=== PATIENT | male | born 2005 | race Caucasian/White ===

== ENCOUNTER 2023-01-14 11:04 | Outpatient (CLI) | payer OTHER, SELFPAY ==
--- NOTE | ~2023-01-14 | XR_ITS ---
EXAM: XR shoulder RT min 2V DATE: 01/14/2023 11:24 HISTORY: ACUTE PAIN OF RIGHT SHOULDER . COMPARISON: None available. FINDINGS: Normal mineralization. No fracture or dislocation. No lytic or blastic lesion. Joint space s are maintained. No erosion or periosteal change. Soft tissues within normal limits. IMPRESSION: No acute osseous finding in the right shoulder. Reviewed, dictated and finalized at location K.
== END 2023-01-14 11:05 | disposition home or self-care (01) ==
LOC: ANHASCIMG 11:10
PROVIDERS: Visit Provider Orthopaedic Surgery
DX: M25.511 Pain in right shoulder (principal)
CPT/HCPCS: 73030

== ENCOUNTER 2023-07-18 18:23 | Emergency (ER) | payer OTHER, SELFPAY ==
--- NOTE | ~2023-07-18 | XR_ITS ---
EXAMINATION: XR finger 2nd RT min 2V DATE: 07/18/2023 18:45 INDICATION: Right hand second digit injury and pain. TECHNIQUE: 4 views of right hand second digit were obtained. COMPARISON: None. FINDINGS: Bone alignment is normal. There is a nondisplaced oblique intra-articular fracture of base of second proximal phalanx. Joint spaces are normal. IMPRESSION: 1. Nondisplaced oblique intra-articular fracture of base of second proximal phalanx. Reviewed, dictated and finalized at location E. IMPRESSION: 1. Nondisplaced oblique intra-articular fracture of base of second proximal pha lanx.
[2023-07-18 18:29] VITALS: BP 150/80; PULSE 67; RESP 16; TEMP 37.1; O2SAT 100
--- NOTE | 2023-07-18 18:47 | ED.UPPEXIN ---
HPI - Extremity Injury (Upper) General Chief Complaint: Extremity Injury, Upper Stated Complaint: Right Finger Injury Source: patient and RN notes reviewed History of Present Illness HPI narrative: 17 yo M presents to urgent care with complaints of right index finger pain. Pt states [employer]VEN[employer]LY[employer], he was playing baseball when a ball bounced up and hit his right index finger. Pt reports his nail was bleeding at first and now presents with proximal phalanx pain. Denies any other injury. Related Data Home Medications Medication Instructions Recorded Confirmed No Home Medications 07/18/23 07/18/23 Allergies Allergy/AdvReac Type Severity Reaction Status Date / Time No Known Allergies Allergy Verified 07/18/23 18:36 Review of Systems Review of Systems: CONSTITUTIONAL: Denies fever, chills, or sweats. EYES: Denies visual changes, redness, or discharge. ENT: Denies otalgia and sore throat CARDIOVASCULAR: Denies chest pain, palpitations, or edema. RESPIRATORY: Denies cough or dyspnea. GASTROINTESTINAL: Denies abdominal pain, nausea, vomiting, or diarrhea. GENITOURINARY: Denies dysuria or hematuria. SKIN: Denies rash or itching. MUSCULOSKELETAL: Right index finger NEUROLOGIC: Denies headache, numbness, or weakness. Pertinent positives per HPI. PMFSH Comments At the time of my signature, I reviewed and agree with the nursing past medical, surgical, social, and family history. There is no relevant family history pertinent to the patient complaint. Exam Narrative: GENERAL: This is a well-nourished, well-developed patient, in no apparent distress. HEAD: normocephalic, atraumatic. EYES: Sclera clear/white. Vision is grossly intact. EARS: External ears normal, auditory canals clear and without drainage. Hearing grossly intact. NOSE: External nose normal with no obvious nasal discharge, nares without redness, no rhinorrhea. THROAT: Mucous membranes moist, posterior pharynx clear. NECK: Neck supple, non-tender without lymphadenopathy, masses or thyromegaly. CARDIOVASCULAR: Regular rate RESPIRATORY: No respiratory distress SKIN: warm, intact with no suspicious lesions or rash, good texture and turgor. NEURO: awake, alert, and oriented to person, place and time. There were no obvious focal neurologic abnormalities. EXTREMITIES: edematous and tender right 2nd, proximal, phalanx. minimal bleeding around tip of nail. cap refill < 3 sec. Course Course Level of Care: Express Care Visit Vital Signs Vital signs: Vital Signs Temperature 98.8 F 07/18/23 18:29 Pulse Rate 67 07/18/23 18:29 Respiratory Rate 16 07/18/23 18:29 Blood Pressure 150/80 H 07/18/23 18:29 Pulse Oximetry 100 07/18/23 18:29 Oxygen Delivery Room Air 07/18/23 18:29 Temperature 98.8 F 07/18/23 18:29 Pulse Rate 67 07/18/23 18:29 Respiratory Rate 16 07/18/23 18:29 Blood Pressure 150/80 H 07/18/23 18:29 Pulse Oximetry 100 07/18/23 18:29 Oxygen Delivery Room Air 07/18/23 18:29 reviewed MDM - Extremity Injury (Upper) MDM Narrative Medical decision making narrative: Use the RICE method at home. May take ibuprofen and/or Tylenol if needed. Follow-up with specialist. Differential Diagnosis Differential diagnosis: Likely finger sprain, dislocation of finger and other (finger fx) Imaging Data Radiologist's impression: [facility] [place] [id number] XRay Report Signed Patient: Bret Craft : 2005 MR#: [id number] Age/Sex: 17 / M Acct:[id number] Loc: [facility]? ? ADM Date: 07/18/23Attending Dr: Ordering Physician: Shirley Colón APRN Date of Service: 07/18/23 Procedure(s): XR finger 2nd RT min 2V Accession Number(s): [id number] cc: Shirley Colón APRN~ EXAMINATION: XR finger 2nd RT min 2V DATE: 07/18/2023 18:45 INDICATION: Right hand second digit injury and pain. TECHNIQUE: 4 views of right hand second digit
== END 2023-07-18 19:10 | disposition home or self-care (01) ==
PROVIDERS: Emergency Provider Nurse Practitioner Family
DX: S62.640A Nondisplaced fracture of proximal phalanx of right index finger, initial encounter for closed fracture (principal); W21.03XA Struck by baseball, initial encounter
CPT/HCPCS: 29130; 73140; 99214; G0463

== ENCOUNTER → 2023-08-08 10:31 | Outpatient (CLI) | payer OTHER, SELFPAY ==
--- NOTE | ~2023-08-08 | XR_ITS ---
EXAMINATION: XR hand RT min 3V DATE: 08/08/2023 10:53 INDICATION: Nondisplaced fracture of the second proximal phalanx of the right hand TECHNIQUE: Posteroanterior, oblique and lateral views of the right hand were obtained. COMPARISON: 07/18/2023 FINDINGS: Again seen is a nondisplaced intra-articular fracture at the ulnar base of the right fifth proximal p halanx. No definitive callus formation identified. Unable to assess for interval change in the degree of lucency along the fracture plane which was best patient in a supinated obliquity on the prior per dy which was not obtained in the current study. No evident fracture gap or incongruity at the articul ar surface. Remaining bones are unremarkable with normal limited no other fractures. Joint spaces are normal. Decrease in the prior soft tissue swelling at the second digit, now only minimal at the base of the digit. IMPRESSION: 1. No evident change in a nondisplaced intra-articular fracture at the base of the right second proxi mal phalanx. Reviewed, dictated and finalized at location A. IMPRESSION: 1. No evident change in a nondisplaced intra-articular fracture at the base of the right second proximal phalanx.
== END ==
DX: S62.640A Nondisplaced fracture of proximal phalanx of right index finger, initial encounter for closed fracture (principal); X58.XXXA Exposure to other specified factors, initial encounter
CPT/HCPCS: 73130

== ENCOUNTER 2024-08-23 06:30 | Emergency (ER) | payer OTHER, SELFPAY ==
--- NOTE | ~2024-08-23 | CT_ITS ---
CT abdomen pelvis wo con Ordering provider: Cristopher Paredes MD History: 19 years Male with . lef flank pain and hematuria . Comparison: None. Technique: CT abdomen and pelvis without contrast IV and without oral contrast. Automated exposure co ntrol and iterative reconstruction technique were employed.The dose-length product was 194.83 mGy-cm. Findings: VISUALIZED LOWER CHEST: Normal. UPPER ABDOMINAL ORGANS: Liver: Normal. Gallbladder: Normal. Spleen: Normal. Stomach/duodenum: Normal. Pancreas: Normal. Adrenals: Normal. Kidneys: Tiny stones in the left kidney upper and lower poles are noted. PELVIC ORGANS: The bladder is underfilled. Evaluation for cystitis advised. tiny faint calcifications seen in the posterior aspect of the urinary bladder with possibility of ti ny calcification in the left lower ureter and ureterovesical junction suggestive of stones. Follow-up advised. BOWEL AND MESENTERY: Colon: No evidence of diverticulitis. Fecal Material is seen in the right side of the colon. Normal a ppendix. Small Bowel: Normal. No obstruction. Peritoneum/mesentery: No free air or free fluid. No mesenteric lymphadenopathy. Small mesenteric lymp h nodes seen in the right side of the abdomen the largest measures 1.3 cm. RETROPERITONEUM: Normal aorta. No retroperitoneal lymphadenopathy. MUSCULOSKELETAL: Superficial soft tissues: The superficial soft tissues are normal. Bones: Normal spine. IMPRESSION: Possible stones in the posterior aspect of the urinary bladder and the left lower ureter. Follow-up a dvised. Tiny stones in the left kidney. No evidence of appendicitis, diverticulitis or intestinal obstruction. Reviewed, dictated and finalized at location A. PASSENGER VESSEL IMPRESSION: Possible stones in the posterior aspect of the urinary bladder and the left low er ureter. Follow-up advised. Tiny stones in the left kidney. No evidence of appendicitis, diverticulitis or intestinal obstruction.
[2024-08-23 06:42] VITALS: BP 147/83; PULSE 63; RESP 24; TEMP 37.2; O2SAT 100
[2024-08-23 07:02] LABS: Basophils Absolute Auto 0.1 K/mm3 (0.0-0.1); Basophils Percent Auto 0.7 % (0.2-1.2); Eosinophils Absolute Auto 0.1 K/mm3 (0-0.3); Eosinophils Percent Auto 1.4 % (0-4.4); Hematocrit 43.1 % (42.0-52.0); Hemoglobin 15.2 g/dL (14.0-18.0); Immature Granulocyte Absolute 0.01 K/mm3 (0.00-0.031); Immature Granulocyte Percent A 0.1 % (0-0.5); Lymphocytes Absolute Auto 3.54 K/mm3 (0.9-3.2); Lymphocytes Percent Auto 47.8 % (18.3-44.2); Mean Corpuscular HGB Conc 35.3 g/dl (32-36); Mean Corpuscular Hemoglobin 31.2 pg (26-34); Mean Corpuscular Volume 88.5 fl (80-100); Mean Platelet Volume 9.9 fl (7.4-10.4); Monocytes Percent Auto 12.8 % (2.6-8.5); Neutrophils Absolute Auto 2.8 K/mm3 (1.3-6.7); Neutrophils Percent Auto 37.2 % (45.5-73.1); Platelet Count Result 262 k/mm3 (150-375); Red Blood Count 4.87 M/mm3 (4.6-6.20); Red Cell Distribution Width 11.9 % (11.5-14.5); White Blood Count 7.4 K/mm3 (4.5-10.0)
[2024-08-23 07:15] LABS: Alanine Aminotransferase 25 U/L (6-50); Albumin Level 4.5 g/dL (3.5-5.1); Alkaline Phosphatase 60 U/L (38-126); Anion Gap 9 mmol/L (4-12); Aspartate Amino Transferase 23 U/L (17-59); Bilirubin,Total 0.6 mg/dL (0.2-1.3); Blood Urea Nitrogen 13 mg/dL (9-20); Calcium 9.2 mg/dL (8.4-10.2); Carbon Dioxide 25 mmol/L (22-30); Chloride 104 mmol/L (98-107); Estimated CRCL calculation 118 ml/min; Estimated Glomerular Filt Rate > 60; Glucose 142 mg/dL (65-110); Potassium 3.1 mmol/L (3.4-5.0); Sodium 138 mmol/L (137-145)
--- NOTE | 2024-08-23 07:15 | ED_ITS ---
HPI - General Adult General Chief complaint: Abdominal Pain Stated complaint: left side pain Time Seen by Provider: 08/23/24 06:52 History of Present Illness HPI narrative: 19-year-old male with no significant past medical history other than factor 5 Leiden disease presented to the emergency department for evaluation for left flank pain. Patient states he woke up to use the restroom and had no pain with urination noticed no blood in his urine but then began having significant left flank pain when he laid back down. Patient did take ibuprofen for pain control and states upon arrival emergency department that the medication is finally helping. Patient denies any prior history of kidney stones. Patient states his pain is significantly improved declined any medications for pain control at this time. Related Data Allergies Allergy/AdvReac Type Severity Reaction Status Date / Time No Known Allergies Allergy Verified 07/18/23 18:36 Review of Systems Review of Systems: All systems reviewed & are unremarkable except as noted in HPI and below PMFSH Past Medical History Medical History (Updated 08/23/24 @ 09:30 by Cristopher Paredes MD) Ureteral calculi Exam Narrative: APPEARANCE: Well appearing, no pain, no distress, well-nourished. HEAD: normocephalic, atraumatic. EYES: PERRLA/EOMI, conjunctivae clear. NOSE: Normal no drainage EARS:TMS clear with good light reflex. THROAT: Pharynx clear, no exudate. NECK: Supple. No adenopathy, no masses. RESPIRATORY: Airway patent, respirations nonlabored. Clear to auscultation bilaterally, no rales, rhonchi, wheezing. CARDIOVASCULAR: Regular rate and rhythm without murmurs rubs or gallops. ABDOMINAL: Soft, nontender, nondistended, normal bowel sounds MUSCULOSKELETAL: Moves all extremities. Strength/ROM intact, No edema, No calf tenderness. NEURO: Alert. Cranial nerves II through XII intact. Good gait. Good coordination SKIN: Warm, dry. Normal Color Course Vital Signs Vital signs: Vital Signs Temperature 98.9 F 08/23/24 06:42 Pulse Rate 63 08/23/24 06:42 Respiratory Rate 24 H 08/23/24 06:42 Blood Pressure 147/83 H 08/23/24 06:42 Pulse Oximetry 100 08/23/24 06:42 Oxygen Delivery Room Air 08/23/24 06:42 Temperature 98.9 F 08/23/24 06:42 Pulse Rate 76 08/23/24 09:52 Respiratory Rate 18 08/23/24 09:52 Blood Pressure 133/75 08/23/24 09:52 Pulse Oximetry 99 08/23/24 09:52 Oxygen Delivery Room Air 08/23/24 06:42 Medical Decision Making MDM Narrative Medical decision making narrative: 19-year-old male presents emergency department for evaluation of left flank pain. Patient is afebrile with no leukocytosis and hemoglobin of 15.2. Patient has normal kidney function no acute abnormalities on his CMP patient did have high months of blood on his UA and CT scan was ordered to evaluate for ureteral calculi. Patient did have some tiny stones within the bladder and at the distal left ureter. I believe this is the underlying etiology for the patient's symptoms. Patient was treated with Flomax and Lennon. Patient was also provided these medications and additional Zofran for home. Patient was instructed to strain his urine and was also provided follow-up with Urology. Differential Diagnosis Differential Diagnosis: Kidney stone, flank pain, UTI Vital Signs Vital Signs: Vital Signs Temperature 98.9 F 08/23/24 06:42 Pulse Rate 63 08/23/24 06:42 Respiratory Rate 24 H 08/23/24 06:42 Blood Pressure 147/83 H 08/23/24 06:42 Pulse Oximetry 100 08/23/24 06:42 Oxygen Delivery Room Air 08/23/24 06:42 Temperature 98.9 F 08/23/24 06:42 Pulse Rate 76 08/23/24 09:52 Respiratory Rate 18 08/23/24 09:52 Blood Pressure 133/75 08/23/24 09:52 Pulse Oximetry 99 08/23/24 09:52 Oxygen Delivery Room Air 08/23/24 06:42 Lab Data Lab results reviewed: Yes I reviewed the patient's lab results. 08/23/24 06:51 08/23/24 06:51 Labs: Lab Results 08/23/24 08/23/24 Range/Units 06:51 07:31 WBC 7.4 (4.5-10.0) K/mm3 RBC 4.87 (4.6-6.20) M/mm3 Hgb 15.2 (14.0-18.0) g/dL Hct 43.1 (42.0-52.0) % MCV 88.5 (80-100) fl MCH 31.2 (26-34) pg MCHC 35.3 (32-36) g/dl RDW 11.9 (11.5-14.5) % Plt Count 262 (150-375) k/mm3 MPV 9.9 (7.4-10.4) fl Immature Gran % (Auto) 0.1 (0-0.5) % Neut % (Auto) 37.2 L (45.5-73.1) % Lymph % (Auto) 47.8 H (18.3-44.2) % [place] % (Auto) 12.8 H (2.6-8.5) % Eos % (Auto) 1.4 (0-4.4) % Baso % (Auto) 0.7 (0.2-1.2) % Lymph # (Auto) 3.54 H (0.9-3.2) K/mm3 [place] # (Auto) 1.0 H (0.1-0.6) K/mm3 Eos # (Auto) 0.1 (0-0.3) K/mm3 Baso # (Auto) 0.1 (0.0-0.1) K/mm3 Abs Immat Gran (auto) 0.01 (0.00-0.031) K/mm3 Absolute Neuts (auto) 2.8 (1.3-6.7) K/mm3 Absolute Nucleated RBC 0.000 (0.0-0.012) K/mm3 Nucleated RBC % 0.0 (0.0-0.2) % Sodium 138 (137-145) mmol/L Potassium 3.1 L (3.4-5.0) mmol/L Chloride 104 (98-107) mmol/L Carbon Dioxide 25 (22-30) mmol/L Anion Gap 9 (4-12) mmol/L BUN 13 (9-20) mg/dL Creatinine 0.90 (0.7-1.3) mg/dL Estim Creat Clear Calc 118 ml/min Estimated GFR > 60 (59 - ) Glucose 142 H (65-110) mg/dL Calcium 9.2 (8.4-10.2) mg/dL Total Bilirubin 0.6 (0.2-1.3) mg/dL AST 23 (17-59) U/L ALT 25 (6-50) U/L Alkaline Phosphatase 60 (38-126) U/L Total Protein 8.0 (6.3-8.2) g/dL Albumin 4.5 (3.5-5.1) g/dL Urine Color Yellow (Yellow) Urine Appearance Cloudy H (Clear) Urine pH 6.5 (5.0-9.0) Ur Specific [place] 1.022 (1.001-1.035) Urine Protein Trace (Negative) mg/dL Urine Glucose (UA) Negative (Negative) mg/dL Urine Ketones Negative (Negative) mg/dL Ur Blood (Man) 3+ H (Negative) Urine Nitrate Negative (Negative) Urine Bilirubin Negative (Negative) Urine Urobilinogen 1.0 (<2.0) mg/dL Leukocyte Esterase Rfl Negative (Negative) ABUNDIO/UL Urine RBC 21-50 H (0-2) /hpf Urine WBC 6-10 H (0-3) /hpf Ur Squamous Epith Cells None seen (Few) /hpf Urine Bacteria None seen /hpf Urine Casts 3-5 Imaging Data Radiologist's impression: Impressions Abdomen/Pelvis CT 08/23/24 08:59 IMPRESSION: Possible stones in the posterior aspect of the urinary bladder and the left lower ureter. Follow-up advised. Tiny stones in the left kidney. No evidence of appendicitis, diverticulitis or intestinal obstruction. Discharge Plan Discharge Clinical Impression: Acute flank pain, Hematuria, Kidney calculi Patient Disposition: Home, Self-Care Condition: Stable Instructions: Antibiotic Form, How to Strain Your Urine (ED), Abdominal Pain (ED), Flank Pain (ED) Additional Instructions: Ibuprofen for pain control. Lennon as needed for additional pain control. Flomax as directed to help you pass the stone. Zofran as needed for nausea. Strain your urine as instructed. Have close follow-up with your primary care physician. You should also have follow-up with Urology. If you have any wo rsening symptoms please call or return to the emergency department. Prescriptions: New tamsulosin [Flomax] 0.4 mg capsule 0.4 mg PO DAILY 10 Days Qty: 10 0RF hydrocodone-acetaminophen 5-325 mg tablet 1 tablet PO Q12H PRN (Reason: pain) Qty: 14 0RF ondansetron 4 mg tablet,disintegrating 4 mg PO Q8H PRN (Reason: nausea and vomiting) Qty: 14 0RF Follow-up/Referrals: Viral Wise MD [Physician] - PHYSICIAN NOT ON STAFF,NONSTAFF [Primary Care Provider] -
[2024-08-23] MEDS: SODIUM CHLORIDE 0.9% IV 1,000 ML 999 ML IV CONT (07:30)
[2024-08-23 07:42] LABS: Add Urine Microscopic? YES; Appearance Urine Cloudy (Clear); Bacteria Urine None Seen /hpf; Bilirubin Urine Negative (Negative); Blood Urine 3+ (Negative); Color Urine Yellow (Yellow); Glucose Urine UA Negative (Negative); Ketones Urine Negative (Negative); Leukocyte Esterase Ur Negative LEU/UL (Negative); Nitrate Urine Negative (Negative); Protein Urine Trace mg/dL (Negative); RBC Urine 21-50 /hpf (0-2); Specific Grav Ur 1.022 (1.001-1.035); Squamous Epithelial Cell Urine None Seen /hpf (Few); pH Urine 6.5 (5.0-9.0)
[2024-08-23] MEDS: KETOROLAC 15 MG/ML VIAL (*BKC) IV PUSH (09:41)
[2024-08-23] MEDS: TAMSULOSIN HCL 0.4 MG CAPSULE PO (09:41)
[2024-08-23 09:52] VITALS: BP 133/75; PULSE 76; RESP 18; O2SAT 99
== END 2024-08-23 09:53 | disposition home or self-care (01) ==
PROVIDERS: Student in an Organized Health Care Education/Training Program; Emergency Provider Emergency Medicine
DX: N20.0 Calculus of kidney (principal); D68.51 Activated protein C resistance
CPT/HCPCS: 36415; 74176; 80053; 81001; 85025; 87077; 87086; 87186; 96361; 96374; 99284; A9270; J1885; J7030